=== PATIENT | female | born 1985 | race Caucasian/White ===

== ENCOUNTER 2017-01-06 10:02 | Emergency (ER) | payer MEDICAID ==
[~2017-01-06] VITALS: Ht 160 cm; Wt 51.0 kg
[2017-01-06 10:10] VITALS: BP 118/72; PULSE 109; RESP 18; TEMP 98.1; O2SAT 100
[2017-01-06] MEDS ORDERED: GUAI1TAB27 PO (10:30)
[2017-01-06] MEDS ORDERED: BENZ100 PO (10:30)
[2017-01-06] MEDS ORDERED: PRED5PAK2 PO (10:30)
--- NOTE | 2017-01-06 10:44 | PD ---
HPI Chief Complaint: Cold / Flu Symptoms Time Seen by Provider: 10:26 Travel History International Travel<30 days: No Contact w/Intl Traveler<30days: No Traveled to known affect area: No History of Present Illness HPI 31-year-old female arrives complaining of cough. It's worse at night. It makes it difficult to sleep at night. She is on the final days of a steroid taper. She has also taken Tessalon Perles. Marginal improvement reported. She 's had no fever. Similar episode occurred in July lasting about 25 days and improved with a course of antibiotics. She denies runny nose and reflux symptoms. Her smokes. She does not. She has no past medical history otherwise. No shortness of breath or chest pain. PFSH Past Medical History Medical History: Denies Significant Hx Influenza Vaccination: No ?: Not Past Surgical History Surgical History: No Previous Surgery Social History Alcohol Use: No Tobacco Use: No Substance Use: No Allergies-Medications (Allergen,Severity, Reaction): Coded Allergies: No Known Allergies (Unverified , 01/06/17) Reported Meds & Prescriptions Reported Meds & Active Scripts Active Reported Mucinex Maximum Strength ER 12 HR (Guaifenesin) 1,200 Mg Sixto 1,200 Mg PO BID Prednisone (48) 5 mg tab Dose Pack (Prednisone) 5 Mg Dspk 5 Mg PO DIRECTED Tessalon Perles (Benzonatate) 100 Mg Cap 100 Mg PO TID PRN Review of Systems General / Constitutional: No: Fever Respiratory: Positive: Cough Physical Exam Narrative GENERAL: Well-nourished well-developed 31-year-old female pleasant no acute distress occasional brief dry cough SKIN: Warm and dry. NECK: Supple, trachea midline. No JVD or lymphadenopathy. CARDIOVASCULAR: Regular rate and rhythm without murmurs, gallops, or rubs. RESPIRATORY: Breath sounds equal bilaterally. No accessory muscle use. GASTROINTESTINAL: Abdomen soft, non-tender, nondistended. MUSCULOSKELETAL: No cyanosis, or edema. BACK: Nontender without obvious deformity. No CVA tenderness. Data Data Last Documented VS Vital Signs Date Time Temp Pulse Resp B/P Pulse Ox O2 Delivery O2 Flow Rate FiO2 01/06/17 10:30 99 Room Air 01/06/17 10:10 98.1 109 18 118/72 Vital signs reviewed MDM Medical Decision Making Medical Screen Exam Complete: Yes Emergency Medical Condition: Yes Differential Diagnosis Pneumonia, bronchitis, postnasal drip, GERD, inflammatory disease due to household smoker Narrative Course Patient's had a cough for several days. In the past azithromycin worked. Prednisone and Tessalon have helped marginally. "Cold symptoms" as noted in triage note as reported to me by patient is her cough. Diagnosis Primary Impression: Cough Referrals: Primary Care Physician as needed Additional Instructions: You have a choice when it comes to health care, and we are glad that you chose [facility]. Hopefully, we have met your expectations on today's visit. You are welcome to return to [facility] at any time, as we are committed to meeting the health care needs of our community. Med/Other Pt SpecificInfo: Prescription(s) given Scripts Azithromycin 250 Mg [id number] Mg PO DIRECTED #6 TAB Ref 0 Take 2 tabs (500 mg) on day 1 then 1 tab daily x 4 days. Prov:Nacho Garcia MD 01/06/17 Disposition: 01 DISCHARGE HOME Condition: Stable Nacho Garcia MD January 06, 2017 10:44
[2017-01-06] MEDS ORDERED: AZIT250T3 PO (10:48)
[2017-01-06] MEDS ORDERED: ALBUAER3 INH (10:54)
== END 2017-01-06 11:03 | disposition home or self-care (01) ==
LOC: PHED 10:02
DX: R05 Cough (principal); Z77.22 Contact with and (suspected) exposure to environmental tobacco smoke (acute) (chronic)
CPT/HCPCS: 99283